=== PATIENT | male | born 1935 | race Caucasian/White ===

== ENCOUNTER 2020-11-21 19:10 | Emergency (ER) | payer OTHER, SELFPAY ==
[~2020-11-21] VITALS: Ht 185.4 cm; Wt 96.2 kg
[~2020-11-21 19:10] MED LIST: ASPI325; ASPI81EC PO; ATEN25 PO; ATOR10 PO; CARV3.125 PO; CARV6.25 PO; CARVEDILOL12.5 MG PO; CIPR500 PO; CODACE30 PO; DOXA4 PO; ELIQUIS2.5 MG PO; ENTRESTO 49 MG1 EAC2 PO; FISH1000 PO; FURO20 PO; Furosemide20 MG PO; HYDR1TAB94 PO; K-Dur20 MEQ PO; LISI20 PO; MECL25 PO; METR500 PO; MULVITA; NITR.4SL SL; OMEP20ER PO; POTCHL20ER PO; PRED10; Prinivil10 MG PO; TAMS.4ER PO; TRAM50 PO; Ultram50 MG PO
[2020-11-21 19:55] LABS: BASOPHILS ABSOLUTE AUTO 0.02 K/mm3 (0.00-0.23); BASOPHILS PERCENT AUTO 0 % (0-2); EOSINOPHILS ABSOLUTE AUTO 0.32 K/mm3 (0.00-0.68); EOSINOPHILS PERCENT AUTO 6 % (0-6); Hematocrit 37.8 % (37.0-53.0); Hemoglobin 12.4 g/dL (13.5-17.5); IMMATURE GRAN ABSOLUTE AUTO 0.01 K/mm3 (0.00-0.10); IMMATURE GRAN PERCENT AUTO 0 % (0-1); LYMPHOCYTES ABSOLUTE AUTO 1.35 K/mm3 (0.84-5.20); LYMPHOCYTES PERCENT AUTO 26 % (21-46); MONOCYTES ABSOLUTE AUTO 0.44 K/mm3 (0.16-1.47); MONOCYTES PERCENT AUTO 9 % (4-13); Mean Corpuscular HGB 29.7 pg (26.0-34.0); Mean Corpuscular HGB Conc 32.8 g/dL (31.5-36.5); Mean Corpuscular Volume 91 fL (80-100); Mean Platelet Volume 10.2 fL (9.1-12.4); NEUTROPHILS ABSOLUTE AUTO 3.05 K/mm3 (1.96-9.15); NEUTROPHILS PERCENT AUTO 59 % (41-73); Platelet Count 182 K/mm3 (150-400); RDW Coefficient Variation 13.2 % (11.7-14.2); Red Blood Cell Count 4.17 M/mm3 (4.30-5.90); White Blood Cell Count 5.19 K/mm3 (4.00-11.30)
[2020-11-21 20:10] LABS: Alanine Aminotransfer (ALT/SGP 23 U/L (12-78); Albumin, Blood 3.4 g/dL (3.4-5.0); Albumin/Globulin Ratio 1.1 (0.8-1.8); Alk Phos 69 U/L (50-136); Anion Gap 6 mmol/L (6-16); Aspartate Aminotrans (AST/SGOT 21 U/L (12-37); Bilirubin, Total 0.5 mg/dL (0.1-1.0); Blood Urea Nitrogen 25 mg/dL (8-24); Bun/Creatinine Ratio 17.6 (12.0-20.0); CO2, Blood 25 mmol/L (21-32); Calcium, Blood 8.5 mg/dL (8.5-10.1); Chloride, Blood 111 mmol/L (98-108); Creatinine, Blood 1.42 mg/dL (0.60-1.20); Globulin, Blood 3.2 g/dL (2.2-4.0); Glomerular Filtration Rate 50 (60-); Glucose, Blood 133 mg/dL (70-99); Potassium, Blood 4.3 mmol/L (3.5-5.5); Sodium, Blood 142 mmol/L (136-145); Total Protein, Blood 6.6 g/dL (6.4-8.2); Troponin I <0.015 ng/mL (0.000-0.040)
== END 2020-11-22 00:28 | disposition home or self-care (01) ==
LOC: ER 19:10
PROVIDERS: Emergency Medicine
DX: R07.9 Chest pain, unspecified (principal); I10 Essential (primary) hypertension; K21.9 Gastro-esophageal reflux disease without esophagitis; I48.91 Unspecified atrial fibrillation; Z88.0 Allergy status to penicillin; Z79.899 Other long term (current) drug therapy; Z87.891 Personal history of nicotine dependence
CPT/HCPCS: 71046; 80053; 83690; 83880; 84484; 85025; 93005; 93010; 96360; 96361; 99285-25; J7030

== ENCOUNTER 2021-02-17 05:01 | Emergency (ER) | payer OTHER ==
[~2021-02-17] VITALS: Ht 182.9 cm; Wt 96.6 kg
[2021-02-17 05:15] LABS: Calcium, Ionized (POC) 1.12 mmol/L (1.10-1.46); Chloride (POC) 106 mmol/L (98-108); Creatinine (POC) 1.4 mg/dL (0.8-1.3); Glucose (ISTAT POC) 101 mg/dL (70-99); Hemoglobin (POC) 12.2 g/dL (13.5-17.5); Potassium (POC) 4.1 mmol/L (3.5-5.5); Sodium (POC) 142 mmol/L (135-148); Total CO2 (POC) 24 mmol/L (21-32)
[2021-02-17 05:20] LABS: BASOPHILS ABSOLUTE AUTO 0.01 K/mm3 (0.00-0.23); BASOPHILS PERCENT AUTO 0 % (0-2); EOSINOPHILS ABSOLUTE AUTO 0.22 K/mm3 (0.00-0.68); EOSINOPHILS PERCENT AUTO 3 % (0-6); Hematocrit 38.3 % (37.0-53.0); Hemoglobin 12.4 g/dL (13.5-17.5); IMMATURE GRAN ABSOLUTE AUTO 0.01 K/mm3 (0.00-0.10); IMMATURE GRAN PERCENT AUTO 0 % (0-1); LYMPHOCYTES ABSOLUTE AUTO 1.27 K/mm3 (0.84-5.20); LYMPHOCYTES PERCENT AUTO 14 % (21-46); MONOCYTES ABSOLUTE AUTO 0.66 K/mm3 (0.16-1.47); MONOCYTES PERCENT AUTO 8 % (4-13); Mean Corpuscular HGB 29.9 pg (26.0-34.0); Mean Corpuscular HGB Conc 32.4 g/dL (31.5-36.5); Mean Corpuscular Volume 92 fL (80-100); Mean Platelet Volume 10.3 fL (9.1-12.4); NEUTROPHILS ABSOLUTE AUTO 6.63 K/mm3 (1.96-9.15); NEUTROPHILS PERCENT AUTO 75 % (41-73); Platelet Count 166 K/mm3 (150-400); RDW Coefficient Variation 13.4 % (11.7-14.2); RDW Standard Deviation 45.6 fL (35.1-46.3); Red Blood Cell Count 4.15 M/mm3 (4.30-5.90)
[2021-02-17 05:40] LABS: Albumin, Blood 3.4 g/dL (3.4-5.0); Albumin/Globulin Ratio 1.1 (0.8-1.8); Bilirubin, Total 0.9 mg/dL (0.1-1.0); Bun/Creatinine Ratio 16.3 (12.0-20.0); Calcium, Blood 8.5 mg/dL (8.5-10.1); Creatinine, Blood 1.29 mg/dL (0.60-1.20); Globulin, Blood 3.1 g/dL (2.2-4.0); Total Protein, Blood 6.5 g/dL (6.4-8.2); Troponin I 0.021 ng/mL (0.000-0.040)
== END 2021-02-17 08:22 | disposition home or self-care (01) ==
LOC: ER 05:01
PROVIDERS: Student in an Organized Health Care Education/Training Program
DX: R07.9 Chest pain, unspecified (principal); I10 Essential (primary) hypertension; K21.9 Gastro-esophageal reflux disease without esophagitis; I48.91 Unspecified atrial fibrillation; Z79.899 Other long term (current) drug therapy; Z88.0 Allergy status to penicillin; Z79.01 Long term (current) use of anticoagulants; Z87.891 Personal history of nicotine dependence
CPT/HCPCS: 71045; 80047; 80053; 84484; 85014; 85025; 93005; 93010; 96374; 96375; 99285-25; J1885; J2270

== ENCOUNTER 2021-03-10 06:43 | Day surgery (SDC) | payer OTHER ==
[~2021-03-10] VITALS: Ht 182.9 cm; Wt 99.0 kg
--- NOTE | 2021-03-10 09:00 | NUR ---
PT BACK TO RECOVERY ROOM VIA RECLINER AFTER PROCEDURE. AWAKE AND ALERT, DENIES CURRENT PAIN OR DISCOMFORT. RIGHT RADIAL SITE SOFT AND NON-TENDER. NO BLEEDING OR SWELLING NOTED. PT GIVEN PO FLUIDS PER REQUEST.
--- NOTE | 2021-03-10 09:34 | NUR ---
PT EATING BREAKFAST, CURRENTLY DECLINES NEEDS. VSS, CALL LIGHT IN REACH.
--- NOTE | 2021-03-10 10:19 | NUR ---
RIGHT RADIAL TR BAND HAS BEEN FULLY DEFLATED. NO BLEEDING OR SWELLING NOTED AT SITE. PT DENIES PAIN OR DISCOMFORT TO RIGHT WRIST. VSS, PT DENIES CURRENT NEEDS. CONTINUES TO DOZE INTERMITTENTLY IN RECLINER, CALL LIGHT IN REACH.
--- NOTE | 2021-03-10 11:16 | NUR ---
IV DC'D, CATH INTACT. PT AND DAUGHTER GIVEN DC INSTRUCTIONS, VERBALIZED UNDERSTANDING. RIGHT RADIAL SITE REMAINS SOFT AND NON-TENDER. NO BLEEDING OR SWELLING NOTED AT SITE. SPLINT AND SLING IN PLACE, PT OUT TO CAR VIA WHEELCHAIR.
== END 2021-03-10 11:00 | disposition home or self-care (01) ==
LOC: MHTC 06:43
DX: I49.5 Sick sinus syndrome (principal); I47.2 Ventricular tachycardia; I25.10 Atherosclerotic heart disease of native coronary artery without angina pectoris; I48.19 Other persistent atrial fibrillation; I48.92 Unspecified atrial flutter; I11.0 Hypertensive heart disease with heart failure; I50.20 Unspecified systolic (congestive) heart failure; E78.5 Hyperlipidemia, unspecified; Z88.0 Allergy status to penicillin; Z79.01 Long term (current) use of anticoagulants; Z87.891 Personal history of nicotine dependence
CPT/HCPCS: 93458; 99152; 99153; C1769; C1887; C1894; J2250; J3010; J7030; J7050; Q9967

== ENCOUNTER 2021-03-14 06:12 | Day surgery (SDC) | payer OTHER ==
[~2021-03-14] VITALS: Ht 182.9 cm; Wt 96.0 kg
--- NOTE | 2021-03-14 19:53 | NUR ---
REPORT GIVEN AT BEDSIDE DURING PT ARRIVAL BY [facility] RN AT 1110; PT TRANSFERRED TO BED FROM STRETCHER BY RN X3 ON RA WITH NO INFUSIONS OR MONITORING; TELEMETRY ORDERED AND APPLIED; PT VSS; FREQUENT VS TAKEN PER RECOVERY PROTOCOL; PT'S DAUGHTER JOSH WAS CALLED AT 1243 WITH NO ANSWER; JOSH VISITED PT AT BEDSIDE AND RECEIVED UPDATES; PT WEIGHED IN 93.6KG VIA BED SCALE AND REPORTED HEIGHT 6'1"; PT DENIES ADDITIONAL CONCERNS AT THIS TIME
[2021-03-15 04:17] LABS: Bun/Creatinine Ratio 18.5 (12.0-20.0); Calcium, Blood 8.5 mg/dL (8.5-10.1); Creatinine, Blood 1.46 mg/dL (0.60-1.20); Potassium, Blood 4.8 mmol/L (3.5-5.5)
--- NOTE | 2021-03-15 06:33 | NUR ---
SUMMARY POD #1 AICD PLACEMENT. NO ACUTE CHANGES NOTED THROUGH THE NIGHT. PT HAS BEEN ABLE TO REST, PAIN MANAGED WITH TYLENOL & 1 OXYCODONE. LEFT ARM KEPT IN ARM BRACE, ELEVATED ON A PILLOW, DRSG DRY/INTACT, SCANT DRAINAGE NOTED/TRACED. PT EDUCATED ON ACTIVITY RESTRICTIONS, HE STATES UNDERSTANDING. HR 60-70'S, OCCASIONALY PACED. CALL LIGHT IN REACH, HANG & REPORT TO DAY RN.
[2021-03-15] MEDS ORDERED: Acetaminophen650 M1 PO (10:50)
[2021-03-15] MEDS ORDERED: HYDR1TAB94 PO (10:51)
--- NOTE | 2021-03-15 11:06 | NUR ---
DISCHARGE PT WAS DISCHARGED TODAY AT APPROXIMATELY 1100. PT HAD A PACER PLACED YESTERDAY. PT WAS GIVEN A SLING, AND REINFORCED EDUCATION REGARDING PRECAUTIONS FOR HIS LEFT ARM. PT WAS ENCOURAGED TO AVOID PUSHING/PULLING, LIFTING HEAVY THINGS, DRIVING ECT... ACTIVITY WHILE THE PACER SITE HEALED. PT GAVE VERBAL UNDERSTANDING DID HIS DAUGHTER WHO WAS PRESENT. PT HAD SOME MODERATE PAIN AT THE SITE FROM THE PROCEDURE AND WAS GIVEN NORCO AND A WRITTEN PRESCRIPTION TO TAKE HOME FOR THE NORCO. TELE WAS DC'D AND IV WAS REMOVED. PT WAS TAKEN TO HIS CAR WITH HIS DAUGHTER IN A WHEELCHAIR AND ESCORTED OUT BY SLIDE FASTENER REPAIRER. PT WAS STABLE AT DISCHARGE, ON RA.
== END 2021-03-15 10:58 | disposition home or self-care (01) ==
LOC: MHTC 06:12 → PCU 11:40 → MHTC 03-15 10:58
PROVIDERS: Internal Medicine Cardiovascular Disease
DX: I49.5 Sick sinus syndrome (principal); I47.2 Ventricular tachycardia; I25.10 Atherosclerotic heart disease of native coronary artery without angina pectoris; I42.0 Dilated cardiomyopathy; I48.19 Other persistent atrial fibrillation; I11.0 Hypertensive heart disease with heart failure; I50.22 Chronic systolic (congestive) heart failure; I48.92 Unspecified atrial flutter; E78.5 Hyperlipidemia, unspecified; K21.9 Gastro-esophageal reflux disease without esophagitis; F03.90 Unspecified dementia, unspecified severity, without behavioral disturbance, psychotic disturbance, mood disturbance, and anxiety; Z79.01 Long term (current) use of anticoagulants; Z87.891 Personal history of nicotine dependence; Z88.0 Allergy status to penicillin
CPT/HCPCS: 33249; 36415; 71046; 80048; 93005; 93010; 99152; 99153; A9270; C1722; C1769; C1895; J1580; J1644; J2250; J3010; J7040

== ENCOUNTER → 2021-08-21 | Outpatient (CLI) | payer OTHER ==
[~2021-08-21] MED LIST changes: +Acetaminophen650 M1 PO; +BELLADONNA ALKALOIDS PR; +COREG25 MG PO; +ELIQUIS5 M2 PO; +FLOMAX0.4 MG PO; +Hydrocodone-Ap1 EA26 PO; +MELATONIN5 M1 PO; +Norco 7.5/325 Tablet PO
[2021-08-21 09:53] LABS: BASOPHILS ABSOLUTE AUTO 0.01 K/mm3 (0.00-0.23); BASOPHILS PERCENT AUTO 0 % (0-2); EOSINOPHILS ABSOLUTE AUTO 0.04 K/mm3 (0.00-0.68); EOSINOPHILS PERCENT AUTO 1 % (0-6); Hematocrit 36.6 % (37.0-53.0); IMMATURE GRAN ABSOLUTE AUTO 0.01 K/mm3 (0.00-0.10); IMMATURE GRAN PERCENT AUTO 0 % (0-1); LYMPHOCYTES PERCENT AUTO 21 % (21-46); MONOCYTES ABSOLUTE AUTO 0.45 K/mm3 (0.16-1.47); MONOCYTES PERCENT AUTO 12 % (4-13); Mean Corpuscular HGB 30.3 pg (26.0-34.0); Mean Corpuscular HGB Conc 32.8 g/dL (31.5-36.5); Mean Corpuscular Volume 92 fL (80-100); Mean Platelet Volume 10.4 fL (9.1-12.4); NEUTROPHILS ABSOLUTE AUTO 2.59 K/mm3 (1.96-9.15); NEUTROPHILS PERCENT AUTO 66 % (41-73); Platelet Count 141 K/mm3 (150-400); RDW Coefficient Variation 13.4 % (11.7-14.2); RDW Standard Deviation 45.3 fL (35.1-46.3); Red Blood Cell Count 3.96 M/mm3 (4.30-5.90)
[2021-08-21 10:02] LABS: Bun/Creatinine Ratio 15.2 (12.0-20.0); Calcium, Blood 8.3 mg/dL (8.5-10.1); Creatinine, Blood 1.71 mg/dL (0.60-1.20); Potassium, Blood 4.1 mmol/L (3.5-5.5)
== END | disposition home or self-care (01) ==
LOC: LAB SHORT 09:48 → LAB 09:48
PROVIDERS: Physician Assistant Surgical
DX: I95.9 Hypotension, unspecified (principal)
CPT/HCPCS: 80048; 85025

== ENCOUNTER → 2021-08-22 | Outpatient (CLI) | payer OTHER ==
[2021-08-22 09:08] LABS: Bun/Creatinine Ratio 16.6 (12.0-20.0); Creatinine, Blood 1.63 mg/dL (0.60-1.20)
== END ==
LOC: LAB 08:49 → LAB SHORT 08:49
PROVIDERS: Physician Assistant
DX: U07.1 COVID-19 (principal)
CPT/HCPCS: 80048; 83880

== ENCOUNTER 2022-03-17 07:05 | Emergency (ER) | payer OTHER ==
[~2022-03-17] VITALS: Ht 182.9 cm; Wt 98.9 kg
[~2022-03-17 07:05] MED LIST changes: -BELLADONNA ALKALOIDS PR; -COREG25 MG PO; -ELIQUIS5 M2 PO; -FLOMAX0.4 MG PO; -Hydrocodone-Ap1 EA26 PO; -Norco 7.5/325 Tablet PO
[2022-03-17 07:55] LABS: BASOPHILS ABSOLUTE AUTO 0.02 K/mm3 (0.00-0.23); BASOPHILS PERCENT AUTO 0 % (0-2); EOSINOPHILS ABSOLUTE AUTO 0.05 K/mm3 (0.00-0.68); EOSINOPHILS PERCENT AUTO 1 % (0-6); Hematocrit 35.1 % (37.0-53.0); Hemoglobin 11.6 g/dL (13.5-17.5); IMMATURE GRAN ABSOLUTE AUTO 0.02 K/mm3 (0.00-0.10); IMMATURE GRAN PERCENT AUTO 0 % (0-1); LYMPHOCYTES ABSOLUTE AUTO 0.77 K/mm3 (0.84-5.20); LYMPHOCYTES PERCENT AUTO 7 % (21-46); MONOCYTES ABSOLUTE AUTO 0.71 K/mm3 (0.16-1.47); MONOCYTES PERCENT AUTO 7 % (4-13); Mean Corpuscular HGB 29.7 pg (26.0-34.0); Mean Corpuscular Volume 90 fL (80-100); NEUTROPHILS PERCENT AUTO 85 % (41-73); Platelet Count 219 K/mm3 (150-400); RDW Coefficient Variation 12.8 % (11.7-14.2); RDW Standard Deviation 42.2 fL (35.1-46.3); Red Blood Cell Count 3.91 M/mm3 (4.30-5.90); White Blood Cell Count 10.37 K/mm3 (4.00-11.30)
[2022-03-17 08:18] LABS: Source, Urine Foley catheter
[2022-03-17 08:18] LABS: Albumin, Blood 3.3 g/dL (3.4-5.0); Albumin/Globulin Ratio 0.8 (0.8-1.8); Bilirubin, Total 0.9 mg/dL (0.1-1.0); Bun/Creatinine Ratio 19.1 (12.0-20.0); Calcium, Blood 9.2 mg/dL (8.5-10.1); Creatinine, Blood 2.51 mg/dL (0.60-1.20); Globulin, Blood 3.9 g/dL (2.2-4.0); Potassium, Blood 4.5 mmol/L (3.5-5.5); Total Protein, Blood 7.2 g/dL (6.4-8.2)
[2022-03-17 08:20] LABS: Appearance, Urine Clear (Clear); Bilirubin, Urine Neg (Neg); Blood, Urine 4+ (Neg); Color, Urine Yellow (P-Yellow); Glucose Qualitative, Urine Neg (Neg); Ketones, Urine Neg (Neg); Leukocyte Esterase, Urine Neg (Neg); Nitrite, Urine Neg (Neg); Protein, Urine 2+ (Neg); Urobilinogen, Urine NORM (Normal)
[2022-03-17 08:31] LABS: Bacteria Rare /hpf; Red Blood Cells, Urine 25-50 /hpf (0-2); Squamous Epithelial Cells Not Seen /hpf (Few)
== END 2022-03-17 10:20 | disposition home or self-care (01) ==
LOC: ER 07:05
PROVIDERS: Emergency Medicine
DX: N13.9 Obstructive and reflux uropathy, unspecified (principal); R10.9 Unspecified abdominal pain; N19 Unspecified kidney failure; I10 Essential (primary) hypertension; K21.9 Gastro-esophageal reflux disease without esophagitis; I25.2 Old myocardial infarction; Z88.0 Allergy status to penicillin; Z79.01 Long term (current) use of anticoagulants; Z79.899 Other long term (current) drug therapy
CPT/HCPCS: 36415; 51702; 51798; 74176; 80053; 81001; 85025; A9270; J1170; J2405

== ENCOUNTER 2022-03-19 12:31 | Observation (INO) | payer OTHER ==
[~2022-03-19] VITALS: Ht 182.9 cm; Wt 85.4 kg
[2022-03-19 13:15] LABS: BASOPHILS ABSOLUTE AUTO 0.02 K/mm3 (0.00-0.23); BASOPHILS PERCENT AUTO 0 % (0-2); EOSINOPHILS ABSOLUTE AUTO 0.21 K/mm3 (0.00-0.68); EOSINOPHILS PERCENT AUTO 2 % (0-6); Hematocrit 35.2 % (37.0-53.0); Hemoglobin 11.2 g/dL (13.5-17.5); IMMATURE GRAN ABSOLUTE AUTO 0.03 K/mm3 (0.00-0.10); IMMATURE GRAN PERCENT AUTO 0 % (0-1); LYMPHOCYTES ABSOLUTE AUTO 0.92 K/mm3 (0.84-5.20); LYMPHOCYTES PERCENT AUTO 9 % (21-46); MONOCYTES ABSOLUTE AUTO 0.97 K/mm3 (0.16-1.47); MONOCYTES PERCENT AUTO 9 % (4-13); Mean Corpuscular HGB 29.4 pg (26.0-34.0); Mean Corpuscular HGB Conc 31.8 g/dL (31.5-36.5); Mean Corpuscular Volume 92 fL (80-100); Mean Platelet Volume 10.1 fL (9.1-12.4); NEUTROPHILS ABSOLUTE AUTO 8.12 K/mm3 (1.96-9.15); NEUTROPHILS PERCENT AUTO 79 % (41-73); Platelet Count 217 K/mm3 (150-400); RDW Coefficient Variation 13.2 % (11.7-14.2); RDW Standard Deviation 45.2 fL (35.1-46.3); Red Blood Cell Count 3.81 M/mm3 (4.30-5.90); White Blood Cell Count 10.27 K/mm3 (4.00-11.30)
[2022-03-19 13:27] LABS: Source, Urine Clean Catch
[2022-03-19 13:30] LABS: Appearance, Urine Clear (Clear); Bilirubin, Urine Neg (Neg); Blood, Urine 5+ (Neg); Glucose Qualitative, Urine Neg (Neg); Ketones, Urine Neg (Neg); Leukocyte Esterase, Urine 2+ (Neg); Nitrite, Urine Neg (Neg); Protein, Urine 1+ (Neg); Urobilinogen, Urine NORM (Normal)
[2022-03-19 13:34] LABS: Color, Urine Pale Yellow (P-Yellow)
[2022-03-19 13:44] LABS: Bacteria Mod /hpf; Squamous Epithelial Cells Rare /hpf (Few)
[2022-03-19 13:44] LABS: Alanine Aminotransfer (ALT/SGP 26 U/L (12-78); Albumin, Blood 2.9 g/dL (3.4-5.0); Albumin/Globulin Ratio 0.8 (0.8-1.8); Alk Phos 101 U/L (50-136); Anion Gap 5 mmol/L (6-16); Aspartate Aminotrans (AST/SGOT 25 U/L (12-37); Bilirubin, Total 0.5 mg/dL (0.1-1.0); Blood Urea Nitrogen 43 mg/dL (8-24); Bun/Creatinine Ratio 14.9 (12.0-20.0); CO2, Blood 29 mmol/L (21-32); Calcium, Blood 8.7 mg/dL (8.5-10.1); Chloride, Blood 106 mmol/L (98-108); Creatinine, Blood 2.88 mg/dL (0.60-1.20); Globulin, Blood 3.6 g/dL (2.2-4.0); Glomerular Filtration Rate 20 (60-); Glucose, Blood 115 mg/dL (70-99); Potassium, Blood 4.9 mmol/L (3.5-5.5); Sodium, Blood 140 mmol/L (136-145); Total Protein, Blood 6.5 g/dL (6.4-8.2)
--- NOTE | 2022-03-19 18:33 | NUR ---
ER ADMIT- PT ARRIVED TO ROOM 341 VIA GURNEY FROM ED. 4 PERSON SLIDE INTO BED. SON AND DAUGHTER AT BEDSIDE. PT ORIENTED TO PERSON, PLACE AND FAMILY, UNSURE OF DATE. PT REPORTS 10/10 PAIN TO GROIN AREA, STATES IT IS SHARP INTERMITTENT PAIN. LS CLEAR, ON RA, RESP TACHY R/T PAIN. AICD TO LEFT CHEST. THAKKAR CATHETER IN PLACE, PER ED NURSE PLACED ON 03/17 AND WAS [address] PL[address], ER DOCTOR ORDERED FOR IT NOT TO BE REPLACED. BAG CHANGED TO A THAKKAR BAG. SKIN C/D/I. PT CRYING OUT IN BED UPON ARRIVAL, PRN MORPHINE GIVEN WITH NO RELIEF. KPAD PLACED. WILL TRY PRN ATIVAN AT THIS TIME. PER POLST PT A DNR, CODE STATUS CHANGED. PT ORIENTED TO ROOM AND CALL SYSTEM, CALL LIGHT IN REACH.
--- NOTE | 2022-03-20 05:11 | NUR ---
SHIFT SUMMARY PT IS STILL UNCOMFORTABLE , BUT EXPRESSED GREAT RELIEF FROM HIS PAIN IN HIS GROIN. HE HAS BEEN UP WITH A STANDBY ASSIST TO THE BATHROOM WITH HIS CANE. HE FEELS A NEED FOR BOWEL CARE HE HAS NOT GONE TO THE RESTROOM FOR A DAY WHICH IS UNUSUAL FOR HIM. PT WAS GIVEN SOME PRUNE JUICE AND WAS ABLE TO HAVE SOME BM. HE USES HIS CALL LIGHT AND IS AXO 4. BED IN LOWEST POSITION AND CALL LIGHT IN REACH
[2022-03-20 05:17] LABS: BASOPHILS ABSOLUTE AUTO 0.02 K/mm3 (0.00-0.23); BASOPHILS PERCENT AUTO 0 % (0-2); EOSINOPHILS ABSOLUTE AUTO 0.31 K/mm3 (0.00-0.68); EOSINOPHILS PERCENT AUTO 3 % (0-6); Hematocrit 33.6 % (37.0-53.0); Hemoglobin 10.6 g/dL (13.5-17.5); IMMATURE GRAN ABSOLUTE AUTO 0.02 K/mm3 (0.00-0.10); IMMATURE GRAN PERCENT AUTO 0 % (0-1); LYMPHOCYTES ABSOLUTE AUTO 1.03 K/mm3 (0.84-5.20); LYMPHOCYTES PERCENT AUTO 11 % (21-46); MONOCYTES ABSOLUTE AUTO 1.05 K/mm3 (0.16-1.47); MONOCYTES PERCENT AUTO 11 % (4-13); Mean Corpuscular HGB 29.1 pg (26.0-34.0); Mean Corpuscular HGB Conc 31.5 g/dL (31.5-36.5); Mean Corpuscular Volume 92 fL (80-100); Mean Platelet Volume 10.2 fL (9.1-12.4); NEUTROPHILS ABSOLUTE AUTO 7.39 K/mm3 (1.96-9.15); NEUTROPHILS PERCENT AUTO 75 % (41-73); Platelet Count 211 K/mm3 (150-400); RDW Standard Deviation 44.1 fL (35.1-46.3); Red Blood Cell Count 3.64 M/mm3 (4.30-5.90); White Blood Cell Count 9.82 K/mm3 (4.00-11.30)
[2022-03-20 06:16] LABS: Bun/Creatinine Ratio 13.1 (12.0-20.0); Calcium, Blood 8.7 mg/dL (8.5-10.1); Creatinine, Blood 2.89 mg/dL (0.60-1.20); Magnesium, Blood 2.1 mg/dL (1.6-2.4); Potassium, Blood 4.7 mmol/L (3.5-5.5)
--- NOTE | 2022-03-20 13:45 | NUR ---
Spiritual Care Attempted. Pt. is medicated and sleeping. Family members (son and daughter) are present. Daughter share prognosis and requests if Father Tl is still at the hospital. 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 Family verbalized gratitude for the spiritual care visit.
--- NOTE | 2022-03-20 14:00 | NUR ---
New Referral received and report from pt's RN that pt's pain is poorly managed and delroy would like visit. Visit made to room. Pt slept t/o my visit. He appeared sl restless and diaphoretic. Pt's delroy, Lay and son, Edvin present. Discussed s/s experienced prior to admit and currently. Delroy reports pain and nauses still an issue. New orders obtained and entered per RN for longer acting PO analgesic and pt cont to have IV morphine available q2h prn for breakthru pain. New order for Zofran also. Discussed upcoming work up with urology for new bladder lesion. Delroy believes pt may go home with jones catheter and is concerned about how to manage that. Discussed HH services for assist after d/c. Delroy understood Dr to say that pt may be released tomorrow afternoon. Pt has already had HH PT recommended. Spoke with CM re: JOAQUIN RN, ELIGIBILITY COUNSELOR, DYEHOUSE WORKER in addition to PT and delroy's request to speak with them today. Plan to reassess s/s in am.
--- NOTE | 2022-03-21 08:48 | NUR ---
Pt sitting at side of bed eating breakfast. Alert and oriented to x4. His chief c/o is wanting jones catheter removed. When asked about pain, he states, "I'm feeling pretty good". Denies nausea and nearly done with breakfast tray. Pt is anxious to go home and anxious to get catheter out. I told him Dr would discuss catheter with him and that it may be necessary to keep urine flowing out with current bladder lesion being worked up with pt's urologist. Case conferenced with pt's RN after visit. Pt may be d/c'd to sai's home later today with HH services as recommended.
[2022-03-21] MEDS ORDERED: Hydrocodone-Ap1 EA26 PO (13:45)
--- NOTE | 2022-03-21 15:14 | NUR ---
No acute changes to patient status. Continues to c/o pain r/t bladder. MD ordered [place] 7.5/325 for pain. H/H & pallilative referrals in place, orders to discharge home today. Patient will go home with jones cath, provided education on jones care, and discharge meds. Patient verbalized understanding. Vitals stable, removed IV from left AC. Patient left unit at 1405.
== END 2022-03-21 14:00 | disposition home health service (06) ==
LOC: ER 12:31 → MEDS 16:30 → ER 17:23 → MEDS 17:38
PROVIDERS: Emergency Medicine; ADMIT Internal Medicine
DX: G45.9 Transient cerebral ischemic attack, unspecified (principal); R06.00 Dyspnea, unspecified; G93.40 Encephalopathy, unspecified; N32.89 Other specified disorders of bladder; N17.9 Acute kidney failure, unspecified; I13.0 Hypertensive heart and chronic kidney disease with heart failure and stage 1 through stage 4 chronic kidney disease, or unspecified chronic kidney disease; I50.9 Heart failure, unspecified; N18.9 Chronic kidney disease, unspecified; K21.9 Gastro-esophageal reflux disease without esophagitis; N13.30 Unspecified hydronephrosis; I48.91 Unspecified atrial fibrillation; I25.10 Atherosclerotic heart disease of native coronary artery without angina pectoris; E78.5 Hyperlipidemia, unspecified; Z88.0 Allergy status to penicillin; Z79.01 Long term (current) use of anticoagulants; Z79.899 Other long term (current) drug therapy
CPT/HCPCS: 36415; 70450; 71046; 76857; 80048; 80053; 81001; 82947; 83735; 83880; 84484; 85025; 87086; 93005; 93010; 96365; 96375; 96376; 97161; 97165; 97530; 99285-25; A9270; G0378; J1956; J2060; J2270; J2405

== ENCOUNTER 2022-03-26 03:44 | Inpatient (IN) | payer OTHER ==
[~2022-03-26] VITALS: Ht 182.9 cm; Wt 86.6 kg
[~2022-03-26 03:44] MED LIST changes: +Hydrocodone-Ap1 EA26 PO
[2022-03-26 06:58] LABS: BASOPHILS ABSOLUTE AUTO 0.02 K/mm3 (0.00-0.23); BASOPHILS PERCENT AUTO 0 % (0-2); EOSINOPHILS ABSOLUTE AUTO 0.09 K/mm3 (0.00-0.68); EOSINOPHILS PERCENT AUTO 1 % (0-6); Hematocrit 30.9 % (37.0-53.0); Hemoglobin 10.3 g/dL (13.5-17.5); IMMATURE GRAN ABSOLUTE AUTO 0.02 K/mm3 (0.00-0.10); IMMATURE GRAN PERCENT AUTO 0 % (0-1); LYMPHOCYTES ABSOLUTE AUTO 0.67 K/mm3 (0.84-5.20); LYMPHOCYTES PERCENT AUTO 7 % (21-46); MONOCYTES ABSOLUTE AUTO 0.81 K/mm3 (0.16-1.47); MONOCYTES PERCENT AUTO 9 % (4-13); Mean Corpuscular HGB 29.9 pg (26.0-34.0); Mean Corpuscular HGB Conc 33.3 g/dL (31.5-36.5); Mean Corpuscular Volume 90 fL (80-100); Mean Platelet Volume 9.7 fL (9.1-12.4); NEUTROPHILS ABSOLUTE AUTO 7.48 K/mm3 (1.96-9.15); NEUTROPHILS PERCENT AUTO 82 % (41-73); Platelet Count 248 K/mm3 (150-400); RDW Coefficient Variation 12.8 % (11.7-14.2); Red Blood Cell Count 3.45 M/mm3 (4.30-5.90); White Blood Cell Count 9.09 K/mm3 (4.00-11.30)
[2022-03-26 07:18] LABS: Bun/Creatinine Ratio 17.2 (12.0-20.0); Calcium, Blood 9.5 mg/dL (8.5-10.1); Creatinine, Blood 4.36 mg/dL (0.60-1.20); Potassium, Blood 4.8 mmol/L (3.5-5.5)
[2022-03-26 12:56] LABS: Influenza A, PCR NEGATIVE (NEGATIVE); Influenza B, PCR NEGATIVE (NEGATIVE); Resp Syncytial Virus, PCR NEGATIVE (NEGATIVE); SARS-Cov-2 (COVID-19) PCR, MMC NEGATIVE (NEGATIVE)
[2022-03-26] MEDS ORDERED: ELIQUIS5 M2 PO (16:19)
[2022-03-26] MEDS ORDERED: ATOR10 PO (16:20)
[2022-03-26] MEDS ORDERED: BELLADONNA ALKALOIDS PR (16:22)
[2022-03-26] MEDS ORDERED: COREG25 MG PO (16:23)
[2022-03-26] MEDS ORDERED: Norco 7.5/325 Tablet PO (16:25)
[2022-03-26] MEDS ORDERED: OMEP20ER PO (16:26)
[2022-03-26] MEDS ORDERED: ENTRESTO 49 MG1 EAC2 PO (16:27)
[2022-03-26] MEDS ORDERED: FLOMAX0.4 MG PO (16:28)
--- NOTE | 2022-03-26 20:14 | NUR ---
SHIFT SUMMARY 9100 IRRIGATION, 9700 DRAINED, NET OUTPUT = 600. REPLACED [address] THAKKAR PER ATTENDING ORDER, UROJET GIVEN FOR COMFORT BEFORE PLACEMENT. FAMILY VOICED CONCERNS FOR WHY PT HAS NOT BEEN TRANSFERRED, CURRENTLY NO BEDS AVAILABLE. PT KEPT COMORTABLE WITH IRRIGATION/PAIN MEDICATION/SUPPOSITORY (BELLADONNA). REPORT GIVEN TO YOUNG LOPEZ.
--- NOTE | 2022-03-27 04:14 | NUR ---
ASSUMED CARE OF PT AT 1900. PT IS A&OX4, ON BEDREST AND IS ABLE TO MAKE NEEDS KNOWN. 3-WAY CATHETER PLACED FOR CBI, PRODUCING PINK TINGED WITH CLOTS. PT TOLERATING WELL. AFTER CATHETER WAS PLACED PT TALKED TO SON AND DAUGHTER, SAID GOOD NIGHT TO THEM AND FELL ASLEEP. PT SLEPT MOST OF SHIFT, SLEEPS 8+ HOURS. 3-WAY THAKKAR RAN ALL NIGHT, FUNCTIONING WELL. PT CALLS APPROPRIATELY. WILL CONTINUE TO MONITOR AND GIVE REPORT TO DAYSHIFT RN.
[2022-03-27 05:44] LABS: BASOPHILS ABSOLUTE AUTO 0.02 K/mm3 (0.00-0.23); BASOPHILS PERCENT AUTO 0 % (0-2); EOSINOPHILS ABSOLUTE AUTO 0.25 K/mm3 (0.00-0.68); EOSINOPHILS PERCENT AUTO 3 % (0-6); Hemoglobin 9.8 g/dL (13.5-17.5); IMMATURE GRAN ABSOLUTE AUTO 0.01 K/mm3 (0.00-0.10); IMMATURE GRAN PERCENT AUTO 0 % (0-1); LYMPHOCYTES PERCENT AUTO 10 % (21-46); MONOCYTES ABSOLUTE AUTO 0.79 K/mm3 (0.16-1.47); MONOCYTES PERCENT AUTO 10 % (4-13); Mean Corpuscular HGB 29.4 pg (26.0-34.0); Mean Corpuscular HGB Conc 32.7 g/dL (31.5-36.5); Mean Corpuscular Volume 90 fL (80-100); Mean Platelet Volume 9.8 fL (9.1-12.4); NEUTROPHILS ABSOLUTE AUTO 6.21 K/mm3 (1.96-9.15); NEUTROPHILS PERCENT AUTO 77 % (41-73); Platelet Count 241 K/mm3 (150-400); RDW Standard Deviation 42.6 fL (35.1-46.3); Red Blood Cell Count 3.33 M/mm3 (4.30-5.90); White Blood Cell Count 8.08 K/mm3 (4.00-11.30)
[2022-03-27 06:23] LABS: Magnesium, Blood 2.7 mg/dL (1.6-2.4)
[2022-03-27 06:24] LABS: Albumin, Blood 2.4 g/dL (3.4-5.0); Anion Gap 11 mmol/L (6-16); Blood Urea Nitrogen 74 mg/dL (8-24); Bun/Creatinine Ratio 15.7 (12.0-20.0); CO2, Blood 25 mmol/L (21-32); Calcium, Blood 9.8 mg/dL (8.5-10.1); Chloride, Blood 100 mmol/L (98-108); Glomerular Filtration Rate 11 (60-); Glucose, Blood 80 mg/dL (70-99); Phosphorus, Blood 5.9 mg/dL (2.5-4.9); Potassium, Blood 5.1 mmol/L (3.5-5.5); Sodium, Blood 136 mmol/L (136-145)
--- NOTE | 2022-03-27 14:46 | NUR ---
Supportive visit this afternoon. Pt resting in bed upon arrival. Pt LA JOLLA and reports pain has improved and denies pain at this time. Pt's family at bedside. Offered active listening as daughter reports Pt has an appointment in April for surgery and biopsy of bladder lesion. She reports Pt will experience significant pain due to the bladder spasms. Continued supportive visit and answered questions. Spoke with Dr Lopez and discussed case. Placed order for oxybutinin 5mg BID per V/O from Dr Lopez. Pt may benefit from home health nurse for continued bladder irrigation if appropriate until Pt is able to see urologist. Palliative Care will remain available.
--- NOTE | 2022-03-27 18:23 | NUR ---
SHIFT SUMMARY CONTINUOUS BLADDER IRRIGATION THIS SHIFT, 23848 IN WITH 62061 OUT, SOME LOSS FROM LEAK AROUND CATHETER SHORTLY AFTER SHIFT CHANGE. DRAIN CLAMPED TO TRIAL WITHOUT IRRIGATION WHICH WAS TRIALED FOR APPROX 1 HOUR WHICH RESULTED IN SLIGHTLY DARKER URINE THAT WAS ABLE TO FLOW WHEN RESTARTED WITHOUT DIFFICULTY. 1 L BOLUS STARTED R/T LOW BP. PT FAMILY AT BEDSIDE T/O SHIFT. WILL CTM AND REPORT TO YOUNG LOPEZ.
--- NOTE | 2022-03-28 07:56 | NUR ---
LYING IN HIGH FOWLERS WITH EYEWS CLOSED. HAS HAD A ROUGH NIGHT WITH HIS ANGEL DRIP. CLAMP PLACED AT 2AM AFTER DRAINING THAKKAR BAG. CLAMP RELEASED AT 6AM AND CATH WAS CLOTTED. UNABLE TO IRRIGATE LINE. PT STATES THAT PAIN LEVEL IS EXCRUTIATING. CHANGED TO 18G 3WAY ANGEL DRIP CATH AND NEW STATLOCK PLACED. IRRIGATED NEW ANGEL DRIP WHEN HE STARTED TO CRAMP WHEN FLUIDS TURNED BACK ON. MULTIPLE SMALL CLOTS REMOVED FROM LINE AND FLUID BEGAN RUNNING THRU LINE WITH EASE. PT STATES THAT PAIN IS IMPROVED. AFTER ENVIRONMENT CLEANED AND PT MADE COMFORTABLE HE IS LEFT TO REST. DURING BEDSIDE REPORT HE IS SLEEPING. SAFETY MEASURES IN PLACE. WILL CONTINUE TO MONITOR AND ADDRESS NEEDS THEY ARISE.
--- NOTE | 2022-03-28 10:48 | NUR ---
0710-RECVD REPORT FROM PREVIOUS SHIFT JESSICA CLARKE. PT SLEEPING IN BED, BED RAILS UP X 2, BED IN LOWEST POSITION, CALL LIGHT WITHIN REACH. THAKKAR CATHETER PATENT/DRAINING PINK TINGED FLUID, IRRITAGAION TO THREE WAY CATHETER SET TO LOW FLOW. 0915-PT A/O X 4, PLEASANT/COOPERATIVE, PROVIDED ANALGESIA PER MAR, ASSISTED PT TO FILL OUT MENU, PT DENIES N/V, SNACK PROVIDED 1030-FAMILY VISITING PT
[2022-03-28 11:12] LABS: BASOPHILS ABSOLUTE AUTO 0.02 K/mm3 (0.00-0.23); BASOPHILS PERCENT AUTO 0 % (0-2); EOSINOPHILS ABSOLUTE AUTO 0.28 K/mm3 (0.00-0.68); EOSINOPHILS PERCENT AUTO 3 % (0-6); Hematocrit 27.5 % (37.0-53.0); Hemoglobin 8.7 g/dL (13.5-17.5); IMMATURE GRAN ABSOLUTE AUTO 0.03 K/mm3 (0.00-0.10); IMMATURE GRAN PERCENT AUTO 0 % (0-1); LYMPHOCYTES ABSOLUTE AUTO 0.71 K/mm3 (0.84-5.20); LYMPHOCYTES PERCENT AUTO 8 % (21-46); MONOCYTES ABSOLUTE AUTO 0.89 K/mm3 (0.16-1.47); MONOCYTES PERCENT AUTO 11 % (4-13); Mean Corpuscular HGB 28.9 pg (26.0-34.0); Mean Corpuscular HGB Conc 31.6 g/dL (31.5-36.5); Mean Corpuscular Volume 91 fL (80-100); Mean Platelet Volume 9.6 fL (9.1-12.4); NEUTROPHILS ABSOLUTE AUTO 6.55 K/mm3 (1.96-9.15); NEUTROPHILS PERCENT AUTO 77 % (41-73); Platelet Count 230 K/mm3 (150-400); RDW Standard Deviation 42.5 fL (35.1-46.3); Red Blood Cell Count 3.01 M/mm3 (4.30-5.90); White Blood Cell Count 8.48 K/mm3 (4.00-11.30)
[2022-03-28 11:30] LABS: Calcium, Blood 8.8 mg/dL (8.5-10.1); Creatinine, Blood 4.33 mg/dL (0.60-1.20); Potassium, Blood 4.6 mmol/L (3.5-5.5)
--- NOTE | 2022-03-28 18:54 | NUR ---
SHIFT SUMMARY: VSS, NO ACUTE CHANGES. THAKKAR CATHETER WITH LOW FLOW CBI REMAINED PATENT/DRAINING PINK TINGED CLEAR WITH OCCASINAL SMALL CLOTS PASSING THROUGH THAKKAR. SBP <100 T/O SHIFT. PT CONTINUES ON IV FLUID. PT'S FAMILY VISITED THIS SHIFT. PT TOLERATED PO INTAKE. ANALGESIA PER MAR WITH PERIODIC EPISODES OF "SPASMS" PER PT. PROVIDED ANXIOLYTICS PER OCT.
--- NOTE | 2022-03-29 05:53 | NUR ---
LYING IN SEMI FOWLERS WITH EYES CLOSED. HAS RESTED WELL THIS SHIFT. ANGEL DRIP TITRATED DOWN TO SLOW TRICKLE FOR 1.5 HRS AND THEN CHECKED FOR CLOTTING. NO RETURN NOTED. IRRIGATION RATE INCREASED AND STILL NO RETURN. IRRIGANT INSTILLED THRU LUER LOCK PORT AND THEN MULTIPLE SMALL CLOTS REMOVED FROM LINE AND FLUID BEGAN RUNNING THRU WITH EASE. PT STATES THAT PAIN HAS IMPROVED. AFTER REGULATING A GOOD RATED, CLEANING PT'S ENVIRONMENT, AND MAKING HIM COMFORTABLE, HE IS SNORING. SAFETY MEASURES IN PLACE. WILL CONTINUE TO MONITOR AND ADDRESS NEEDS THEY ARISE.
[2022-03-29 11:04] LABS: BASOPHILS ABSOLUTE AUTO 0.02 K/mm3 (0.00-0.23); BASOPHILS PERCENT AUTO 0 % (0-2); EOSINOPHILS ABSOLUTE AUTO 0.23 K/mm3 (0.00-0.68); EOSINOPHILS PERCENT AUTO 4 % (0-6); Hematocrit 27.7 % (37.0-53.0); Hemoglobin 8.7 g/dL (13.5-17.5); IMMATURE GRAN ABSOLUTE AUTO 0.02 K/mm3 (0.00-0.10); IMMATURE GRAN PERCENT AUTO 0 % (0-1); LYMPHOCYTES ABSOLUTE AUTO 0.65 K/mm3 (0.84-5.20); LYMPHOCYTES PERCENT AUTO 10 % (21-46); MONOCYTES PERCENT AUTO 11 % (4-13); Mean Corpuscular HGB 29.3 pg (26.0-34.0); Mean Corpuscular HGB Conc 31.4 g/dL (31.5-36.5); Mean Corpuscular Volume 93 fL (80-100); Mean Platelet Volume 9.5 fL (9.1-12.4); NEUTROPHILS ABSOLUTE AUTO 5.01 K/mm3 (1.96-9.15); NEUTROPHILS PERCENT AUTO 76 % (41-73); Platelet Count 232 K/mm3 (150-400); RDW Coefficient Variation 12.9 % (11.7-14.2); RDW Standard Deviation 43.9 fL (35.1-46.3); Red Blood Cell Count 2.97 M/mm3 (4.30-5.90); White Blood Cell Count 6.63 K/mm3 (4.00-11.30)
[2022-03-29 11:20] LABS: Bun/Creatinine Ratio 18.3 (12.0-20.0); Calcium, Blood 8.9 mg/dL (8.5-10.1); Creatinine, Blood 4.27 mg/dL (0.60-1.20)
--- NOTE | 2022-03-29 18:12 | NUR ---
SHIFT SUMMARY: VSS, NO ACUTE CHANGES. THIS SHIFT PT HAS BEEN MUMBLING NONSENSE WORDS/SENTENCES. FLACC SCALE BEEN UTILIZED PT IS UNABLE TO ANSWER. PAIN CONTROLLED PER MAR. FAMILY MEMBERS IN ROOM FOR MUCH OF THE SHIFT. PT HAS DECREASED APPETITE, HAS EATING SOME JELLO, WATERMELON, AND ENSURE X 2 THIS SHIFT. PT DID STAND ONCE WITH 2 PERSON MAX ASSIST, GAIT BELT, WAS UNABLE TO FOLLOW COMMANDS WELL, VERY SHAKY. THAKKAR CATHETER REQUIRED FLUSHING WITH APPROX 200 ML STERILE WATER, CLOTS REMOVED/BROKEN UP; CATHETER PATENT/DRAINING CURRENTLY, DARK PINK FLUID.
--- NOTE | 2022-03-30 05:04 | NUR ---
SHIFT SUMMARY PT HAS NOT SAID MUCH THIS SHIFT, WORDS NONSENSICAL. MYOCLONUS MOVEMENTS THIS SHIFT. PT ABLE TO TAKE MEDICATION CRUSHED IN APPLE SAUCE W/ MULTIPLE REMINDERS AND QUES OF WHEN TO SWALLOW. VITAL SIGNS STABLE. CATHETER MANUALLY IRRIGATED X1 AT BEGINING OF SHIFT, MULTIPLE SMALL CLOTS AT THAT TIME. CONTINUOUS BLADDER IRRIGATION CONTINUED THROUGHOUT SHIFT. PO PAIN MEDICATION GIVEN PER EMAR. SON AT BEDSIDE. WILL CONTINUE TO MONITOR AND REPORT TO ONCOMING RN.
[2022-03-30 07:39] LABS: BASOPHILS ABSOLUTE AUTO 0.03 K/mm3 (0.00-0.23); BASOPHILS PERCENT AUTO 0 % (0-2); EOSINOPHILS ABSOLUTE AUTO 0.27 K/mm3 (0.00-0.68); EOSINOPHILS PERCENT AUTO 4 % (0-6); Hematocrit 26.8 % (37.0-53.0); Hemoglobin 8.6 g/dL (13.5-17.5); IMMATURE GRAN ABSOLUTE AUTO 0.03 K/mm3 (0.00-0.10); IMMATURE GRAN PERCENT AUTO 0 % (0-1); LYMPHOCYTES ABSOLUTE AUTO 0.79 K/mm3 (0.84-5.20); LYMPHOCYTES PERCENT AUTO 11 % (21-46); MONOCYTES ABSOLUTE AUTO 0.75 K/mm3 (0.16-1.47); MONOCYTES PERCENT AUTO 11 % (4-13); Mean Corpuscular HGB 29.9 pg (26.0-34.0); Mean Corpuscular HGB Conc 32.1 g/dL (31.5-36.5); Mean Corpuscular Volume 93 fL (80-100); Mean Platelet Volume 9.7 fL (9.1-12.4); NEUTROPHILS ABSOLUTE AUTO 5.18 K/mm3 (1.96-9.15); NEUTROPHILS PERCENT AUTO 74 % (41-73); Platelet Count 240 K/mm3 (150-400); RDW Coefficient Variation 12.9 % (11.7-14.2); RDW Standard Deviation 43.8 fL (35.1-46.3); Red Blood Cell Count 2.88 M/mm3 (4.30-5.90); White Blood Cell Count 7.05 K/mm3 (4.00-11.30)
[2022-03-30 07:51] LABS: Bun/Creatinine Ratio 18.1 (12.0-20.0); Calcium, Blood 9.1 mg/dL (8.5-10.1); Creatinine, Blood 4.25 mg/dL (0.60-1.20)
--- NOTE | 2022-03-30 09:55 | NUR ---
Called to room urgently this am due to family request to have pt's implanted defibrilator turned off because of pt's cont decline. Pt was not on comfort care at the start of my visit. It had been discussed by provider and other staff. I clarified with Lay Potts and Son, Edvin that comfort care desired at this time. Both state, Yes. Pt was restless, moaning, and did not respond to voice or touch. RN reports current medications ordered for pain and anxiety are not adequate for treating pt's s/s. T/c to to update on current status, family request and VO for comfort care, d/c of defibrilator per heart center obtained and entered. Comfort care cart ordered for family at bedside. I returned to room, explained new orders and goals of comfort care while pt in the hospital. Reviewed briefly that if pt is able to get s/s managed well, then we would discuss dc planning if that is possible. Family in agreement and appreciative of the visit. New orders reviewed with RN. Pt info hand carried to heart center after DR's VO obtained/entered for turning off pt's AICD. Plan to f/u later today to further assess s/s management.
--- NOTE | 2022-03-30 11:53 | NUR ---
Spritual care visit conducted. After receiving a staff request to visit pt's family, I gladly do so. Pt's dtr, Lay and son, Edvin are bedside. Lay is tearful at times as they both share stories about their father and about the kind of man that he is. They also discuss the challenges they have had in watching the pt decline so rapily with the reality of his imminent demise setting in. We discuss the anticipatory grief and the family/friend support they have in place. We also explore the pt's and their belief systems and other positive ways of managing this level of emotional pain. I encourage self-care, reinforce helpful ways of coping and provide therapeutic listening, anticipatory grief support and a calming presence. I will contiue to remain avilable to pt and family.
--- NOTE | 2022-03-30 13:35 | NUR ---
PATIENT WAS JUST SWITCHED TO COMFORT CARE THIS MORNING. HIS PACEMAKER WAS TURNED OFF WELL. PATIENT IS NON RESPONSIVE WITH TOUCH OR NAME. PATIENT IS TWITCHING WITH NO SPECIFIC REASON. HE IS ALSO GARGLING WHICH SUCTION HAS BEEN APPLIED BUT NO OUTPUT FROM IT BESIDES SOME CLEAR FOAM. THAKKAR IS IN PLACE AND DRAINING CLEAR OUTPUT. FAMILY IS AT BEDSIDE. CALL LIGHT IS WITHIN REACH OF THE PATIENT AND FAMILY AT BEDSIDE.
--- NOTE | 2022-03-30 13:44 | NUR ---
FAMILY AT BEDSIDE SEEMED TEARY EYED SO THE LETICIA WAS SENT INTO THE ROOM. THE PATIENT SITTING UP IN CHAIR WITH EYES CLOSED. PATIENT WAS CLEANED UP AND REPOSITIONED. PATIENT CONTINUES TO HAVE INTERMITTENT FULL BODY TWITCHING WHICH IS NON-SPECIFIC. FAMILY IN THE ROOM AT BEDSIDE. CALL LIGHT IN REACH FOR THE FAMILY AND PATIENT.
--- NOTE | 2022-03-30 13:48 | NUR ---
PATIENT WAS GIVEN PAIN MEDICATIONS AND THE PATCH BEHIND HIS RIGHT EAR TO HELP WITH ORAL SECRETIONS. THAKKAR IS STILL DRAINING CLEAR OUTPUT. FAMILY AT BEDSIDE. CALL LIGHT IS WITHIN REACH FOR PATIENT AND FAMILY MEMBERS.
--- NOTE | 2022-03-30 15:36 | NUR ---
PATIENT IS SITTING UP IN BED WITH FAMILY AT BEDSIDE. CALL LIGHT WITHIN REACH OF FAMILY AND PATIENT.
--- NOTE | 2022-03-30 18:07 | NUR ---
PATIENT IS LAYING IN BED WITH EYES INTERMITTENTLY OPENING/CLOSING. THE TWITCHING OF HIS ARMS AND LEGS ARE ALSO INTERMITTENT. PATIENT HAS RECIEVED PAIN MEDICATION AND ATROPINE DROPS WHEN FAMILY REQUESTS. THAKKAR IS STILL PLACED WITH LIGHT YELLOW OUTPUT. FAMILY IS AT BEDSIDE. CALL LIGHT IS WITHIN REACH FOR BOTH FAMILY AND PATIENT.
--- NOTE | 2022-03-31 04:23 | NUR ---
SUMMARY PT HAS REMAINED COMFORTABLE DURING SHIFT. PT SON HAS BEEN AT BEDSIDE THROUGHOUT SHIFT. NO NEW ISSUES NOTED. PT REPOSITIONED TOLERATED. PT THAKKAR DRAINING
--- NOTE | 2022-03-31 04:31 | NUR ---
0411 PT SON CALLED AND REPORTS PT NOT BREATHING. PT FOUND PULSELES AND APNEIC. PT PUPILS ARE FIXED AND DIALATED.
== END 2022-03-31 04:15 | DRG 698 ==
LOC: ER 03:44 → SURS 03:45
PROVIDERS: Emergency Medicine; Internal Medicine; ADMIT Family Medicine
PROC: 0T2BX0Z Change Drainage Device in Bladder, External Approach (ICD-10-PCS; principal; 2022-03-27)
PROC: 3C1ZX8Z Irrigation of Indwelling Device using Irrigating Substance, External Approach (ICD-10-PCS; 2022-03-27)
DX: T83.518A Infection and inflammatory reaction due to other urinary catheter, initial encounter (principal); N18.6 End stage renal disease; I13.2 Hypertensive heart and chronic kidney disease with heart failure and with stage 5 chronic kidney disease, or end stage renal disease; Z51.5 Encounter for palliative care; I50.22 Chronic systolic (congestive) heart failure; Z20.822 Contact with and (suspected) exposure to COVID-19; G93.40 Encephalopathy, unspecified; N17.9 Acute kidney failure, unspecified; D62 Acute posthemorrhagic anemia; N13.6 Pyonephrosis; T83.83XA Hemorrhage due to genitourinary prosthetic devices, implants and grafts, initial encounter; R41.0 Disorientation, unspecified; N13.9 Obstructive and reflux uropathy, unspecified; R33.9 Retention of urine, unspecified; I25.10 Atherosclerotic heart disease of native coronary artery without angina pectoris; C67.9 Malignant neoplasm of bladder, unspecified; R31.9 Hematuria, unspecified; N28.1 Cyst of kidney, acquired; N32.89 Other specified disorders of bladder; I48.91 Unspecified atrial fibrillation; K21.9 Gastro-esophageal reflux disease without esophagitis; I25.2 Old myocardial infarction; Z85.46 Personal history of malignant neoplasm of prostate; Z90.79 Acquired absence of other genital organ(s); Z98.890 Other specified postprocedural states; Z88.0 Allergy status to penicillin; Z79.899 Other long term (current) drug therapy; Y84.6 Urinary catheterization as the cause of abnormal reaction of the patient, or of later complication, without mention of misadventure at the time of the procedure
CPT/HCPCS: 0241U; 36415; 51700; 51702; 51798; 76770; 80048; 80069; 83735; 85025; 96374-59; 96375; 96375-59; 96376; 99285-25; A9270; G0378; J1170; J3010; J7030